=== PATIENT | male | born 1955 | race Caucasian/White ===

== ENCOUNTER 2021-02-10 08:48 | Day surgery (SDC) | payer MEDICARE ==
[2021-02-10] VITALS (14 sets, daily range): BP systolic 119–159; BP diastolic 71–97
[~2021-02-10] VITALS: Ht 177.8 cm; Wt 61.0 kg
[~2021-02-10 08:48] MED LIST: cefazolin/dext.iso 2gm/100ml IV ONE; famotidine 20mg tablet PO ONE; ringers solution, lacted 1,000 ML IV SCH
[2021-02-10] MEDS ORDERED: meperidine/PF 25mg/ml syringe IV PRN ×3 (12:30)
[2021-02-10] MEDS ORDERED: morphine 2 MG/ML inj. syringe IV PRN (12:30)
[2021-02-10] MEDS ORDERED: proCHLORperazine 10 MG/2 ml inj IV PRN (12:30)
[2021-02-10] MEDS ORDERED: morphine 4 MG/ML inj SYRINge IV PRN (12:30)
[2021-02-10] MEDS ORDERED: ringers solution, lacted 1,000 ML IV SCH (12:30)
[2021-02-10] MEDS ORDERED: ondansetron/PF 4mg/2ml inj IV PRN (12:30)
[2021-02-10] MEDS ORDERED: LIDOcaine 1% 30ml preserv. free vial ONE (13:05)
[2021-02-10] MEDS ORDERED: BUPIVAcaine 0.5% inj/PF 30 ML ONE (13:05)
[2021-02-10] MEDS ORDERED: sevoflurane 250ml liquid IH ONE (13:26)
[2021-02-10] MEDS ORDERED: rocuronium 10mg/ml inj IV ONE (13:30)
[2021-02-10] MEDS ORDERED: midazolam 1 mg/ML 2ml injection ONE (13:30)
[2021-02-10] MEDS ORDERED: propofol inj 20 ML IV ONE (13:30)
[2021-02-10] MEDS ORDERED: fentaNYL/PF 50MCG/1 ML 2ML syringe ONE (13:30)
[2021-02-10] MEDS ORDERED: neostigmine methylsulfate 1 MG/ML 10ml vial ONE (14:33)
[2021-02-10] MEDS ORDERED: glycopyrrolate 0.2mg/ml inj ONE (14:33)
--- NOTE | 2021-02-10 14:53 | NUR ---
Received from OR via [facility], accompanied by Anesthesiologist DR VALENTINE and report given by Anesthesiologist. PT DROWSY, FIDGETY, DENIES PAIN. ABDOMEN W 3/LAP SITES W/BANDAIDS CDI. Addendum: 02/10/21 at 1522 by Danelle Mendoza RN Amended: Links added.
[2021-02-10] MEDS ORDERED: HYDROcodone/acetaminophen 5mg/325mg tablet PO PRN (15:15)
--- NOTE | 2021-02-10 16:45 | NUR ---
PT UP AMBULATING, DRINKING ORAL FLUIDS ATTEMPTING TO VOID, UNABLE, SCANNED BLADDER FOR 267ML, PT WISHES TO WAIT AND ATTEMPT A FEW MORE TIMES BEFORE GETTING A JONES CATHETER. Addendum: 02/10/21 at 1723 by Danelle Mendoza RN Amended: Links added.
[2021-02-10] MEDS ORDERED: LIDOcaine 2% 10ml TOPICAL JELLY (Urojet) MM ONE (17:35)
--- NOTE | 2021-02-10 19:53 | NUR ---
PT STILL UNABLE TO VOID, AGREED TO JONES CATHETER PLACEMENT. [address] [place] J[employer]ES CATHETER PLACED W/ASEPTIC TECHNIQUE W/RETURN OF CLEAR YELLOW URINE. PT CONTINUES W/O PAIN. D/C INSTRUCTIONS GIVEN AND GONE OVER W/PT WHO VERBALIZED UNDERSTANDING . PT D/CD TO HOME VIA W/C TO PRIVATE VEHICLE W/O INCIDENT. Addendum: 02/10/21 at 2024 by Danelle Mendoza RN Amended: Links added.
== END 2021-02-10 19:53 | disposition home or self-care (01) ==
LOC: PAS 08:48
PROVIDERS: ATTEND Surgery
DX: K40.90 Unilateral inguinal hernia, without obstruction or gangrene, not specified as recurrent (principal); Z79.899 Other long term (current) drug therapy; Z98.890 Other specified postprocedural states
CPT/HCPCS: 49650; 82948; 93005; C1781; J2001; J2250; J2704; J2710; J3010; Z7506; Z7508; Z7512; A4215; A4618; J3490; J7120